=== PATIENT | female | born 1990 | race Asian ===

== ENCOUNTER 2016-11-15 02:30 | Inpatient (IN) | payer SELFPAY ==
[~2016-11-15] VITALS: Ht 160 cm; Wt 59.0 kg
[2016-11-15] MEDS ORDERED: LACTATED RINGERS 1,000 ML IV SCH (03:10)
[2016-11-15] MEDS ORDERED: CITRIC ACID/SODIUM CITRATE 30 ML UDC PO SCH (03:10)
[2016-11-15 03:30] VITALS: BP 115/77
[2016-11-15] MEDS ORDERED: INFLUENZA VIRUS VACCINE QUAD 0.5 ML SYR IMVAC SCH (06:45)
[2016-11-15] MEDS ORDERED: PROMETHAZINE 25 MG/ML VIAL IVP ONE (07:05)
[2016-11-15] MEDS ORDERED: MORPHINE SULFATE 10 MG/ML SYR IVP ONE (07:05)
[2016-11-15] MEDS ORDERED: MORPHINE SULFATE 10 MG/ML SYR ONE (07:08)
[2016-11-15] MEDS ORDERED: PROMETHAZINE 25 MG/ML VIAL ONE (07:08)
[2016-11-15] MEDS ORDERED: TRIAMCINOLONE 40 MG/ML 5ML VIAL ONE (07:15)
[2016-11-15] MEDS ORDERED: OXYTOCIN 10 UNITS/ML VIAL ONE ×2 (07:16→08:45)
--- NOTE | 2016-11-15 07:50 | NUR ---
PATIENT HAS BEEN SCREENED AND CATEGORIZED LOW NUTRITION RISK. PATIENT WILL BE SEEN WITHIN 7 DAYS OF ADMISSION. 11/21/[address]
[2016-11-15] MEDS ORDERED: MORPHINE PRES FREE 10 MG/10 ML AMP IV ONE (08:44)
[2016-11-15] MEDS ORDERED: BUPIVACAINE-MPF 0.75% 10 ML VIAL INJ ONE (08:45)
[2016-11-15] MEDS ORDERED: ONDANSETRON 4 MG/2 ML VIAL ONE (08:45)
[2016-11-15] MEDS ORDERED: NALOXONE 0.4 MG/ML VIAL IVP PRN ×2 (09:10)
[2016-11-15] MEDS ORDERED: ONDANSETRON 4 MG/2 ML VIAL IVP PRN (09:10)
[2016-11-15] MEDS ORDERED: OXYTOCIN 20 UNITS/LR PREMIX 1,000 ML IV SCH (09:10)
[2016-11-15] MEDS ORDERED: diphenhydrAMINE 50 MG/ML VIAL IVP PRN (09:10)
[2016-11-15] MEDS ORDERED: KETOROLAC 30 MG/ML VIAL IVP PRN (09:10)
[2016-11-15] MEDS ORDERED: OXYTOCIN 20 UNITS/LR PREMIX 1,000 ML IV ONE (09:39)
[2016-11-15] MEDS ORDERED: TEMAZEPAM 15 MG CAP PO PRN (11:50)
[2016-11-15] MEDS ORDERED: oxyCODONE/APAP 5/325 MG 1 TAB TAB PO PRN (11:50)
[2016-11-15] MEDS ORDERED: TRIMETHOBENZAMIDE 200 MG/2 ML SYR IM PRN (11:50)
[2016-11-15] MEDS ORDERED: IBUPROFEN 800 MG TAB PO PRN (11:50)
[2016-11-15] MEDS ORDERED: SIMETHICONE 80 MG TAB.CHEW PO PRN (11:50)
[2016-11-15] MEDS ORDERED: MAGNESIUM CITRATE 300 ML BTL PO SCH (11:50)
[2016-11-15] MEDS ORDERED: METHYLERGONOVINE 0.2 MG/ML AMP IM PRN (11:50)
[2016-11-15] MEDS ORDERED: MEASLES, MUMPS, AND RUBELLA 1 VIAL SQVAC PRN (11:50)
[2016-11-15] MEDS: OXYTOCIN 20 UNITS/LR PREMIX 1,000 ML IV SCH (17:32)
[2016-11-15] MEDS ORDERED: ACETAMINOPHEN 325 MG TAB PO PRN (19:40)
[2016-11-15] MEDS: DOCUSATE SOD/SENNA 50/8.6 MG 1 TAB PO SCH (21:00)
[2016-11-16] MEDS: OXYTOCIN 20 UNITS/LR PREMIX 1,000 ML IV SCH (02:25)
[2016-11-16] MEDS ORDERED: SODIUM PHOSPHATE 118 ML ENEM RC SCH (09:00)
[2016-11-16] MEDS: HYDROcodone/APAP 5/325 MG 1 TAB TAB PO PRN (12:13)
[2016-11-16] MEDS: IBUPROFEN 800 MG TAB PO PRN (13:32)
[2016-11-16] MEDS: DOCUSATE SOD/SENNA 50/8.6 MG 1 TAB PO SCH (20:57)
[2016-11-17] MEDS: HYDROcodone/APAP 5/325 MG 1 TAB TAB PO PRN ×2 (00:50→09:05)
[2016-11-17] MEDS: IBUPROFEN 800 MG TAB PO PRN (11:47)
== END 2016-11-17 15:10 | disposition home or self-care (01) | DRG 766 ==
LOC: MFCC 02:30
PROVIDERS: ADMIT Obstetrics & Gynecology; ATTEND Obstetrics & Gynecology
PROC: 3E0234Z Introduction of Serum, Toxoid and Vaccine into Muscle, Percutaneous Approach (ICD-10-PCS; 2016-11-15)
PROC: 10D00Z1 Extraction of Products of Conception, Low, Open Approach (ICD-10-PCS; principal; 2016-11-17)
DX: O82 Encounter for cesarean delivery without indication (principal); Z3A.38 38 weeks gestation of pregnancy; Z37.0 Single live birth; Z23 Encounter for immunization